=== PATIENT | female | born 2000 | race Caucasian/White ===

== ENCOUNTER 2024-05-16 13:00 | Emergency (ER) | payer MEDICAID ==
[~2024-05-16] VITALS: Ht 167.6 cm; Wt 94.4 kg
[2024-05-16 13:31] VITALS: BP 115/58; PULSE 75; RESP 18; TEMP 97.8; O2SAT 98
[2024-05-16] MEDS ORDERED: NAPR-1704 PO (13:53)
[2024-05-16] MEDS: KETOROLAC 30 MG/ML VIAL IM ONE (14:10)
[2024-05-16 14:24] LABS: APPEARANCE,URINE CLEAR (CLEAR); BILIRUBIN,URINE NEGATIVE (NEGATIVE); BLOOD, URINE NEGATIVE (NEGATIVE); COLOR,URINE YELLOW (YELLOW); LEUKOCYTE ESTERASE ,URINE NEGATIVE (NEGATIVE); NITRITE, URINE POSITIVE (NEGATIVE); PROTEIN,URINE NEGATIVE (NEGATIVE); UGLUCOSE NEGATIVE (NEGATIVE); UROBILINOGEN,URINE 0.2 EU/dL (0.2 - 1)
[2024-05-16 14:56] LABS: BACTERIA,URINE 10-30 (MOD) /HPF (None Seen); RBC,URINE 0-5 /HPF (0-5); SQUAMOUS EPITHELIAL CELL,UR 4-10 (MOD) /LPF (0-3 (FEW))
== END 2024-05-16 14:17 | disposition home or self-care (01) ==
LOC: MED 13:00
DX: O99.891 Other specified diseases and conditions complicating pregnancy (principal); M54.41 Lumbago with sciatica, right side; Z3A.01 Less than 8 weeks gestation of pregnancy; Z79.899 Other long term (current) drug therapy; Z88.0 Allergy status to penicillin
CPT/HCPCS: 81001; 81025; 87086; 96372; 99283; J1885

== ENCOUNTER 2024-05-25 09:20 | Emergency (ER) | payer MEDICAID ==
[~2024-05-25] VITALS: Ht 167.6 cm; Wt 93.0 kg
[~2024-05-25 09:20] MED LIST: NAPR-1704 PO
[2024-05-25 09:42] VITALS: BP 122/65; PULSE 97; RESP 18; TEMP 98.3; O2SAT 99
[2024-05-25] MEDS ORDERED: IBUP-2213 PO (11:50)
[2024-05-25] MEDS ORDERED: MUC600 PO (11:50)
[2024-05-25 12:08] VITALS: BP 116/54; PULSE 89; RESP 18; TEMP 37.05852; O2SAT 99
== END 2024-05-25 12:08 | disposition home or self-care (01) ==
LOC: MED 09:20
DX: U07.1 COVID-19 (principal); J06.9 Acute upper respiratory infection, unspecified; F12.90 Cannabis use, unspecified, uncomplicated; Z79.899 Other long term (current) drug therapy; Z88.0 Allergy status to penicillin
CPT/HCPCS: 81025; 99282